=== PATIENT | female | born 1965 | race Caucasian/White ===

== ENCOUNTER 2017-08-18 15:26 | Outpatient (CLI) | payer OTHER | END 2017-08-18 15:27 | disposition home or self-care (01) | LOC: BICMAMMO 15:26 | DX: Z12.31 Encounter for screening mammogram for malignant neoplasm of breast (principal) | CPT/HCPCS: 77067 ==

== ENCOUNTER 2018-02-01 09:51 | Day surgery (SDC) | payer OTHER ==
[2018-01-31 14:10] VITALS: BMI 31.1
--- NOTE | 2018-01-31 23:22 | HP ---
SHORT STAY HISTORY AND PHYSICAL DATE OF ADMISSION: 02/01/2018 HISTORY OF PRESENT ILLNESS: This is a 52-year-old female comes for a colonoscopy for colon cancer ne leida. The patient has strong family history of colon cancer. Her sister of colon cancer at age 42. Also, her paternal grandmother had colon cancer. The patient has no specific GI symptoms. Her bowel movements are regular. No history of rectal bleeding. ALLERGIES: None. SOCIAL HISTORY: The patient does not smoke or drink alcohol. MEDICAL ILLNESSES: 1. Hypertension. 2. Diabetes. 3. Hyperlipidemia. 4. Gout. 5. Hysterectomy. PHYSICAL EXAMINATION: VITAL SIGNS: Pulse is 70, blood pressure 130/70. HEENT: Conjunctivae clear. CARDIOVASCULAR SYSTEM: First and second heart sounds normal. LUNGS: Clear to auscultation. ABDOMEN: Soft to palpate. No organomegaly. No tenderness. No masses. EXTREMITIES: Reveal no edema. ADMITTING DIAGNOSIS: The patient with family history of colon cancer, high risk for cancer. The pat ient comes for a colonoscopy for colon cancer screening.
--- NOTE | 2018-02-01 11:54 | OP ---
DATE OF PROCEDURE: 02/01/2018 SURGEON: Francia Paulson M.D. OPERATIVE PROCEDURE: Colonoscopy. PREOPERATIVE DIAGNOSIS: This is a 52-year-old female with a strong family history of colon cancer. The patient is undergoing colonoscopy for colon cancer screening. POSTOPERATIVE DIAGNOSES: Normal colonoscopy except for hemorrhoids. PROCEDURE IN DETAIL: The patient was placed on her left lateral position and was given sedation by [facility] nesthesia Department. A rectal exam was done before the scope was advanced into the rectum. No lesi ons felt on rectal exam. A [employer] video colonoscope was introduced into the rectum and advanced all the way into the cecum. The prep was good. The mucosa appears normal throughout the colon with norm al vascular pattern. The appendical orifice, ileocecal valve, cecum, no pathology seen. The ascendi ng colon, hepatic flexure, transverse colon, splenic flexure, no pathology seen. The descending colo n and sigmoid colon, no pathology seen. Rectum showed hemorrhoids. DISCHARGE PLANNING: This is a 52-year-old female with strong family history of colon cancer. The patient has no specific GI symptoms. The patient came for colonoscopy for colon cancer screening. The colonoscopy was basically negative except for hemorrhoids. DISCHARGE RECOMMENDATIONS: 1. The patient was advised to call me if she develops any abdominal pain, hematochezia or fever. 2. In the absence of any of the above symptoms she is to come back to me in 2 weeks. RECOMMENDATION: Repeat colonoscopy because of strong family history of colon cancer.
== END 2018-02-01 12:18 | disposition home or self-care (01) ==
LOC: SDC 09:51
PROVIDERS: ATTEND Internal Medicine Gastroenterology
PROC: 0DJD8ZZ Inspection of Lower Intestinal Tract, Via Natural or Artificial Opening Endoscopic (ICD-10-PCS; principal; 2018-02-01)
DX: Z12.11 Encounter for screening for malignant neoplasm of colon (principal); K64.9 Unspecified hemorrhoids; I10 Essential (primary) hypertension; E11.9 Type 2 diabetes mellitus without complications; E78.5 Hyperlipidemia, unspecified; Z88.5 Allergy status to narcotic agent; Z80.0 Family history of malignant neoplasm of digestive organs; Z79.82 Long term (current) use of aspirin; Z79.899 Other long term (current) drug therapy

== ENCOUNTER 2018-10-05 08:30 | Emergency (ER) | payer OTHER ==
[2018-10-05 09:11] LABS: #Basophils 0.1 thou/uL (0.0-0.2); #Eosinphils 0.5 thou/uL (0.0-0.7); #Monocytes 0.5 thou/uL (0.11-0.59); #Neutrophils 4.7 thou/uL (1.40-6.50); %Basophils 0.8 % (0.0-1.0); %Eosinophils 6.4 % (0.0-10.0); %Lymphocytes 26.3 % (21.0-51.0); %Monocytes 6.4 % (0.0-10.0); %Neutrophils 60.1 % (42.0-75.0); Hemoglobin 13.3 g/dL (12.0-16.0); Mean Corpuscular HGB CONC 34.7 g/dL (32.0-36.0); Mean Corpuscular Hemoglobin 32.3 pg (27.0-31.0); Mean Corpuscular Volume 93.1 fL (78.0-98.0); Mean Platelet Volume 10.2 fL (7.4-10.4); Platelet Count 174 thou/uL (130-400); RBC Distribution Width 12.5 % (11.5-14.5); White Blood Cell (WBC) Count 7.8 thou/uL (4.8-10.8)
[2018-10-05 09:28] LABS: ALT (SGPT) 25 U/L (8-55); AST (SGOT) 20 U/L (5-34); Albumin 4.2 g/dL (3.5-5.0); Alkaline Phosphatase 111 U/L (40-150); Anion Gap 11 mmol/L (10-20); BUN (Urea Nitrogen) 12 mg/dL (9.8-20.1); Bilirubin, Total 0.5 mg/dL (0.2-1.2); CK (CPK) 54 U/L (29-168); Calc. Creatinine Clearance 0 mL/min (70-130); Calcium 9.5 mg/dL (7.8-10.44); Carbon Dioxide 29 mmol/L (22-29); Chloride 104 mmol/L (98-107); Estimated GFR-MDRD Greater than 90; Globulin 2.5 g/dL (2.4-3.5); Glucose 116 mg/dL (70-105); Potassium 3.9 mmol/L (3.5-5.1); Protein, Total 6.7 g/dL (6.0-8.3); Sodium 140 mmol/L (136-145)
[2018-10-05 09:35] LABS: Bilirubin Negative (Negative); Blood, Urine Negative (Negative); Clarity CLEAR (Clear); Glucose, Urine (Dipstick) Negative (Negative); Leukocyte Negative (Negative); Nitrite Negative (Negative); Protein, Urine (Dipstick) Negative (Neg-Trace); Specific Gravity, Urine 1.011 (1.002-1.036)
== END 2018-10-05 10:40 | disposition home or self-care (01) ==
LOC: ERS 08:30
DX: R53.1 Weakness (principal); F41.9 Anxiety disorder, unspecified; E10.9 Type 1 diabetes mellitus without complications; E78.5 Hyperlipidemia, unspecified; I10 Essential (primary) hypertension; M10.9 Gout, unspecified; Z79.899 Other long term (current) drug therapy
CPT/HCPCS: 36415; 36416; 80053; 81003; 82550; 85025; 99283

== ENCOUNTER 2018-10-18 14:33 | Outpatient (CLI) | payer OTHER ==
--- NOTE | 2018-10-18 14:59 | RAD ---
Right ankle 3 views HISTORY: Right ankle pain. FINDINGS: Ankle mortise and talar dome are intact. Mild soft tissue swelling and osteophytosis. No ac hansa fracture, dislocation, or aggressive osseous erosions. IMPRESSION: Mild degenerative changes. No acute osseous abnormalities are demonstrated.
== END 2018-10-18 14:34 | disposition home or self-care (01) ==
LOC: BICRAD 14:33
PROVIDERS: ATTEND Family Medicine
DX: M25.571 Pain in right ankle and joints of right foot (principal); M19.071 Primary osteoarthritis, right ankle and foot

== ENCOUNTER 2019-11-24 15:06 | Emergency (ER) | payer OTHER ==
[2019-11-26 12:13] LABS: SARS-CoV-2 MS2 Positive; SARS-CoV-2 N Gene Positive; SARS-CoV-2 S Gene Positive; SARS-CoV-2 orf1ab Positive
== END 2019-11-24 15:22 | disposition home or self-care (01) ==
LOC: ERS 15:06
DX: U07.1 COVID-19 (principal); E10.9 Type 1 diabetes mellitus without complications; E78.5 Hyperlipidemia, unspecified; I10 Essential (primary) hypertension; M10.9 Gout, unspecified; F41.9 Anxiety disorder, unspecified; Z79.899 Other long term (current) drug therapy
CPT/HCPCS: 87635; 99283; U0003

== ENCOUNTER 2021-09-28 11:58 | Observation (INO) | payer OTHER ==
[2021-09-28 12:34] LABS: #Basophils 0.1 thou/uL (0.0-0.2); #Eosinphils 0.2 thou/uL (0.0-0.7); #Lymphocytes 2.3 thou/uL (1.20-3.40); #Monocytes 0.5 thou/uL (0.11-0.59); #Neutrophils 5.5 thou/uL (1.40-6.50); %Basophils 1.1 % (0.0-1.0); %Eosinophils 2.5 % (0.0-10.0); %Lymphocytes 26.8 % (21.0-51.0); %Monocytes 5.2 % (0.0-10.0); %Neutrophils 64.4 % (42.0-75.0); Hemoglobin 13.8 g/dL (12.0-16.0); Mean Corpuscular HGB CONC 32.7 g/dL (32.0-36.0); Mean Corpuscular Volume 94.8 fL (78.0-98.0); Mean Platelet Volume 10.2 fL (7.4-10.4); Platelet Count 187 thou/uL (130-400); RBC Distribution Width 12.9 % (11.5-14.5); Red Blood Cell (RBC) Count 4.47 mill/uL (4.20-5.40); White Blood Cell (WBC) Count 8.5 thou/uL (4.8-10.8)
[2021-09-28 12:55] LABS: ALT (SGPT) 54 U/L (8-55); AST (SGOT) 35 U/L (5-34); Albumin 4.1 g/dL (3.5-5.0); Alkaline Phosphatase 102 U/L (40-110); Anion Gap 14 mmol/L (10-20); BUN (Urea Nitrogen) 12 mg/dL (9.8-20.1); Bilirubin, Total 0.6 mg/dL (0.2-1.2); Calc. Creatinine Clearance 0 mL/min (70-130); Calcium 9.3 mg/dL (7.8-10.44); Carbon Dioxide 27 mmol/L (22-29); Chloride 105 mmol/L (98-107); Glucose 152 mg/dL (70-105); Potassium 3.7 mmol/L (3.5-5.1); Protein, Total 7.1 g/dL (6.0-8.3); Sodium 142 mmol/L (136-145)
[2021-09-28] MEDS ORDERED: Acetaminophen 325 MG TAB PO PRN (13:51)
[2021-09-28] MEDS ORDERED: HumaLOG 300 UNITS/3 ML VIAL SC PRN ×2 (13:57)
[2021-09-28] MEDS ORDERED: Dextrose 5% in Water 1,000 ML IV PRN (13:57)
[2021-09-28] MEDS ORDERED: Dextrose 50% Abboject 50 ML SYRINGE SLOW IVP PRN (13:57)
[2021-09-28 14:31] LABS: Troponin I Less than 0.010 ng/mL (< 0.028)
[2021-09-28 15:29] VITALS: BMI 32.1
[2021-09-28 16:25] LABS: Phosphorus 3.6 mg/dL (2.3-4.7)
[2021-09-28 17:45] LABS: Troponin I Less than 0.010 ng/mL (< 0.028)
[2021-09-28 23:14] LABS: SARS-CoV-2 PCR by NAA Not Detected (NotDetected)
[2021-09-29 05:20] LABS: Cardiac Risk 6.5 (Less than 4.5)
[2021-09-29] MEDS ORDERED: Regadenoson 0.4 MG/5 ML SYRINGE ONE (08:48)
[2021-09-29] MEDS ORDERED: Amlodipine 10 MG TAB PO SCH (09:00)
[2021-09-29] MEDS ORDERED: Aspirin 81 mg Enteric Coated Tablet PO SCH (09:00)
[2021-09-29] MEDS ORDERED: Atorvastatin Calcium 20 MG TAB PO SCH (09:00)
[2021-09-29] MEDS ORDERED: Atorvastatin Calcium 40 MG TAB PO SCH (09:00)
[2021-09-29 13:09] VITALS: BP 154/85; TEMP 98.3
== END 2021-09-29 16:38 | disposition home or self-care (01) ==
LOC: ERS 11:58 → 2SW 13:57
PROVIDERS: ADMIT Student in an Organized Health Care Education/Training Program; ATTEND Student in an Organized Health Care Education/Training Program
DX: I49.9 Cardiac arrhythmia, unspecified (principal); R00.2 Palpitations; I10 Essential (primary) hypertension; E11.9 Type 2 diabetes mellitus without complications; E78.5 Hyperlipidemia, unspecified; Z79.82 Long term (current) use of aspirin; Z79.84 Long term (current) use of oral hypoglycemic drugs; Z79.899 Other long term (current) drug therapy; Z20.822 Contact with and (suspected) exposure to COVID-19
CPT/HCPCS: 36415; 36416; 71045; 78452; 80053; 80061; 83036; 83735; 83880; 84100; 84443; 84484; 85025; 93005; 93017; 94760; A9500; G0378; J2785; U0003; U0005

== ENCOUNTER 2022-12-26 09:30 | Emergency (ER) | payer OTHER, SELFPAY ==
[2022-12-26] MEDS ORDERED: Ketorolac Tromethamine 30 MG/ML VIAL ONE (09:49)
[2022-12-26] MEDS ORDERED: Cyclobenzaprine 10 MG TAB ONE (09:55)
== END 2022-12-26 10:09 | disposition home or self-care (01) ==
LOC: ERS 09:30
DX: S39.012A Strain of muscle, fascia and tendon of lower back, initial encounter (principal); E11.9 Type 2 diabetes mellitus without complications; E78.00 Pure hypercholesterolemia, unspecified; I10 Essential (primary) hypertension; Z79.899 Other long term (current) drug therapy; Z79.84 Long term (current) use of oral hypoglycemic drugs
CPT/HCPCS: 96372; 99283; J1885

== ENCOUNTER 2023-07-01 08:33 | Emergency (ER) | payer OTHER ==
[2023-07-01] MEDS ORDERED: Fluorescein Opthalmic Strip ONE (09:31)
[2023-07-01] MEDS ORDERED: Proparacaine 0.5% Opth 15 ML BOT ONE (09:32)
[2023-07-01] MEDS ORDERED: Erythromycin Base 0.5% Oint 1 GM TUBE ONE (09:43)
== END 2023-07-01 10:13 | disposition home or self-care (01) ==
LOC: ERS 08:33
DX: H10.9 Unspecified conjunctivitis (principal); E10.9 Type 1 diabetes mellitus without complications; E78.00 Pure hypercholesterolemia, unspecified; I10 Essential (primary) hypertension; M10.9 Gout, unspecified
CPT/HCPCS: 99283